=== PATIENT | female | born 1980 | race Caucasian/White ===

== ENCOUNTER → 2019-01-14 | Outpatient (CLI) | payer OTHER ==
[~2019-01-14] MED LIST: ALPR1 PO; AMOCLA875 PO; AMOX500 PO; BUSP15 PO; Bactroban22 GM TOP; CHLO25 PO; FLUO20 PO; HYDHCL25 PO; IBUP800 PO; OXYACE5T PO; PRED10 PO; PROP10 PO; Prednisone20 MG PO; SULTRIDS PO
== END | disposition home or self-care (01) ==
LOC: LAB EV 18:06 → LAB SHORT 18:06
DX: N89.8 Other specified noninflammatory disorders of vagina (principal)
CPT/HCPCS: 87070; 87205; 87529

== ENCOUNTER 2019-05-20 22:23 | Observation (INO) | payer OTHER ==
[~2019-05-20] VITALS: Ht 165.1 cm; Wt 62.1 kg
--- NOTE | 2019-05-21 02:30 | NUR ---
RECEIVED HADN OFF FROM ER NURSE USING SBAR. TRANSPORTED TO ROOM 213 VIA STRETCHER WITH FULL STAFF ASSISTANCE, TOLERATED WELL. ALERT, ORIENTED, AND DROWSY. ORIENTED TO ROOM, CALL SYSTEM, AND POC, VOICES UNDERSTANDING. RESPIRATIONS EVEN AND UNLABORED ON ROOM AIR. LUNG SOUNDS CLEAR BILATERALLY. ABDOMEN SOFT AND NONDISTENDED. BOWEL SOUNDS PRESENT IN ALL QUADS. CONTINENT OF BOWEL AND BLADDER. RIGHT UPPER ARM 18G SL. PIV IS PATENT, FLUSING WITH EASE. LEFT ARM IN JANETH WRAP AND ELEVATED ABOVE HEART LEVEL. LEFT FOOT 20G PIV IS PATENT, INFUSING NS AT 200ML/HR PER MD ORDERS. SCD'S PLACED TO BLE. RATED PAIN AT 8/10. WILL MEDICATE PER JAN. SPOUSE AT BEDSIDE PROVDED WITH PILLOW AND BLANKET FOR COMFORT. DENEIS FURTHER NEEDS AT THIS TIME. SAFETY MEASURES IN PLACE. WILL CONTINUE TO MONITOR.
[2019-05-21 04:42] LABS: BASOPHILS ABSOLUTE AUTO 0.11 K/mm3 (0.00-0.23); BASOPHILS PERCENT AUTO 1 % (0-2); EOSINOPHILS ABSOLUTE AUTO 0.15 K/mm3 (0.00-0.68); EOSINOPHILS PERCENT AUTO 1 % (0-6); Hematocrit 34.6 % (33.0-51.0); Hemoglobin 11.4 g/dL (11.5-16.0); IMMATURE GRAN ABSOLUTE AUTO 0.06 K/mm3 (0.00-0.10); IMMATURE GRAN PERCENT AUTO 0 % (0-1); LYMPHOCYTES ABSOLUTE AUTO 2.55 K/mm3 (0.84-5.20); LYMPHOCYTES PERCENT AUTO 17 % (21-46); MONOCYTES ABSOLUTE AUTO 1.27 K/mm3 (0.16-1.47); MONOCYTES PERCENT AUTO 9 % (4-13); Mean Corpuscular HGB 31.7 pg (26.0-34.0); Mean Corpuscular HGB Conc 32.9 g/dL (31.5-36.5); Mean Corpuscular Volume 96 fL (80-100); Mean Platelet Volume 9.6 fL (9.1-12.4); NEUTROPHILS PERCENT AUTO 72 % (41-73); Platelet Count 306 K/mm3 (150-400); RDW Coefficient Variation 11.9 % (11.7-14.2); RDW Standard Deviation 41.9 fL (35.1-46.3); White Blood Cell Count 14.64 K/mm3 (4.00-11.30)
--- NOTE | 2019-05-21 06:27 | NUR ---
SHIFT SUMMARY NO CHANGES SINCE ADMISSION, HAS BEEN NPO PER MD ORDERS. PAIN IS MANAGED WITH DILAUDID 1MG IVP. DENIES FURTHER NEEDS OR WANTS AT THIS TIME. SAFETY MEASURES IN PLACE. WILL GIVE HAND OFF TO ONCOMING SHIFT USING SBAR.
[2019-05-21 10:19] LABS: Anion Gap 6 mmol/L (6-16); Blood Urea Nitrogen 15 mg/dL (8-24); Bun/Creatinine Ratio 24.5 (12.0-20.0); CO2, Blood 26 mmol/L (21-32); Calcium, Blood 7.7 mg/dL (8.5-10.1); Chloride, Blood 109 mmol/L (98-108); Creatinine, Blood 0.61 mg/dL (0.40-1.00); Glomerular Filtration Rate >60 (60-); Glucose, Blood 92 mg/dL (70-99); Sodium, Blood 141 mmol/L (136-145)
--- NOTE | 2019-05-21 15:38 | NUR ---
1525 Ambulatory FROM BED IN [facility] TO [facility], CONFIRMS NPO/PROCEDURE, History, Chart, Medications and Allergies reviewed before start of procedure.Lungs clear T/O to Auscultation. Patient confirms NPO status and agrees with scheduled surgery. Pre-Op teaching done. Pt verbalizes understanding. SLEEPY AFFECT, MEDICATED IN LAST HOUR WITH DILAUDID, MEDICATED WITH PO PROPRANOLOL/XANAX SEVERAL HOURS AGO. L ARM IN ORTHO/JANETH SPLINT.
--- NOTE | 2019-05-21 18:46 | NUR ---
PT STILL IN OR
--- NOTE | 2019-05-21 20:31 | NUR ---
pt received back from pacu with complaint pain is worse than preop.blanching noted to fingers between first and second joints. pt keeping fingers curled and reports unable to straighten them. she is able to slowly wiggle them with concentration. swelling noted to all fingers.nurse that provided care last night checked noted fingers more swollen than she noted last night. pt complain of "spasms" had leo and toradol postop.L arm elevated with ice applied.pacu nurse reported local anesthetic noted to area.pts bp at 120/80 is said per pt to be high for her.i placed call out to dr edwards.waiting return call.
--- NOTE | 2019-05-21 20:47 | NUR ---
spoke with dr edwards. advised of assessment and pt complaint. he verb staff could remove wilma wrap ,loosen splinting at hand area and rewrap.
--- NOTE | 2019-05-22 01:53 | NUR ---
B MEGHAN HARRISON UNWRAPPED JANETH AND LOOSENED THEN REWRAPPED TONIGHT AFTER OK RECEIVED PER . ALSO FURTHER PAIN MEDS WERE GIVEN.PT VERBALIZING IMPROVEMENT NOTED WITH PAIN. SLEEPING OFF AND ON.
--- NOTE | 2019-05-22 03:11 | NUR ---
PT WOKE AND AMBULATED TO BATHROOM WITH SBA TOLERATED WELL.VOIDING WITHOUT DIFF. GAVE DILAUDID AFTER BACK TO BED.PT REPORTS ADEQUATE PAIN CONTROL. WIGGLES FINGERS. ABLE TO STRAIGHTEN FINGERS EASIER. ELEVATES LUE,BUT REFUSES ICE TO SURGICAL AREA AT THIS TIME. IV INFUSING L FOOT WITH CLEAR SITE.SL DURING AMBULATION.
[2019-05-22 04:25] LABS: BASOPHILS ABSOLUTE AUTO 0.04 K/mm3 (0.00-0.23); BASOPHILS PERCENT AUTO 0 % (0-2); EOSINOPHILS ABSOLUTE AUTO 0.01 K/mm3 (0.00-0.68); EOSINOPHILS PERCENT AUTO 0 % (0-6); Hematocrit 34.2 % (33.0-51.0); Hemoglobin 11.2 g/dL (11.5-16.0); IMMATURE GRAN ABSOLUTE AUTO 0.04 K/mm3 (0.00-0.10); IMMATURE GRAN PERCENT AUTO 0 % (0-1); LYMPHOCYTES ABSOLUTE AUTO 1.24 K/mm3 (0.84-5.20); LYMPHOCYTES PERCENT AUTO 11 % (21-46); MONOCYTES PERCENT AUTO 6 % (4-13); Mean Corpuscular HGB 31.4 pg (26.0-34.0); Mean Corpuscular HGB Conc 32.7 g/dL (31.5-36.5); Mean Corpuscular Volume 96 fL (80-100); Mean Platelet Volume 9.8 fL (9.1-12.4); NEUTROPHILS ABSOLUTE AUTO 9.81 K/mm3 (1.96-9.15); NEUTROPHILS PERCENT AUTO 83 % (41-73); Platelet Count 307 K/mm3 (150-400); RDW Coefficient Variation 11.7 % (11.7-14.2); RDW Standard Deviation 41.1 fL (35.1-46.3); Red Blood Cell Count 3.57 M/mm3 (3.80-5.20); White Blood Cell Count 11.84 K/mm3 (4.00-11.30)
[2019-05-22 04:48] LABS: Alanine Aminotransfer (ALT/SGP 17 U/L (12-78); Albumin, Blood 2.9 g/dL (3.4-5.0); Albumin/Globulin Ratio 0.9 (0.8-1.8); Alk Phos 78 U/L (50-136); Anion Gap 6 mmol/L (6-16); Aspartate Aminotrans (AST/SGOT 28 U/L (12-37); Bilirubin, Total 0.4 mg/dL (0.1-1.0); Blood Urea Nitrogen 8 mg/dL (8-24); Bun/Creatinine Ratio 15.1 (12.0-20.0); CO2, Blood 25 mmol/L (21-32); Calcium, Blood 7.8 mg/dL (8.5-10.1); Chloride, Blood 106 mmol/L (98-108); Creatinine, Blood 0.53 mg/dL (0.40-1.00); Globulin, Blood 3.3 g/dL (2.2-4.0); Glomerular Filtration Rate >60 (60-); Glucose, Blood 127 mg/dL (70-99); Potassium, Blood 4.1 mmol/L (3.5-5.5); Sodium, Blood 137 mmol/L (136-145); Total Protein, Blood 6.2 g/dL (6.4-8.2)
[2019-05-22] MEDS ORDERED: OXYC5 PO (10:20)
--- NOTE | 2019-05-22 10:38 | NUR ---
PATIENT D/C'D HOME WITH MOTHER AT THIS TIME. PATIENT STATES PAIN TOLERABLE WITH PO PAIN MEDS. TOLERATING PO. VOIDING. PATIENT STATES UNDERSTANDING OF MEDS, WOUND CARE, NWB LUE, F/U APPOINTMENT, ETC. NO C/O AT THIS TIME.
--- NOTE | 2019-05-22 12:30 | NUR ---
05/22/19 1230 Argelia Bowman VERIFICATIONS: EDIT CHART.
== END 2019-05-22 10:50 | disposition home or self-care (01) ==
LOC: ER 22:23 → SURS 22:24
PROVIDERS: Internal Medicine; Orthopaedic Surgery; ADMIT Hospitalist
PROC: 0PSL04Z Reposition Left Ulna with Internal Fixation Device, Open Approach (ICD-10-PCS; 2019-05-21)
PROC: 0PSJ04Z Reposition Left Radius with Internal Fixation Device, Open Approach (ICD-10-PCS; principal; 2019-05-21 15:30)
DX: S52.352A Displaced comminuted fracture of shaft of radius, left arm, initial encounter for closed fracture (principal); S52.252A Displaced comminuted fracture of shaft of ulna, left arm, initial encounter for closed fracture; F41.0 Panic disorder [episodic paroxysmal anxiety]; F15.11 Other stimulant abuse, in remission; F11.10 Opioid abuse, uncomplicated; F17.210 Nicotine dependence, cigarettes, uncomplicated; Z91.040 Latex allergy status; Z79.899 Other long term (current) drug therapy; W01.0XXA Fall on same level from slipping, tripping and stumbling without subsequent striking against object, initial encounter
CPT/HCPCS: 25605; 36415; 73090; 80048; 80053; 81025; 85025; 93005; 93010; 94770; 96366; 96374-59; 96375; 96375-59; 96376; 99152; 99284-25; A9270; C1713; G0378; J0690; J1100; J1170; J1885; J2250; J2270; J2405; J2704; J3010; J7030; J7120

== ENCOUNTER 2019-08-06 13:45 | Emergency (ER) | payer OTHER ==
[~2019-08-06] VITALS: Ht 162.6 cm; Wt 59.0 kg
[~2019-08-06 13:45] MED LIST changes: +OXYC5 PO
[2019-08-06] MEDS ORDERED: Xanax1 MG PO (14:24)
== END 2019-08-06 14:32 | disposition home or self-care (01) ==
LOC: ER 13:45
DX: F41.9 Anxiety disorder, unspecified (principal); Z76.0 Encounter for issue of repeat prescription; Z91.040 Latex allergy status; Z79.899 Other long term (current) drug therapy; F17.200 Nicotine dependence, unspecified, uncomplicated
CPT/HCPCS: 99281

== ENCOUNTER 2019-09-09 21:43 | Emergency (ER) | payer OTHER ==
[~2019-09-09] VITALS: Ht 165.1 cm; Wt 61.2 kg
[~2019-09-09 21:43] MED LIST changes: +Xanax1 MG PO
[2019-09-10] MEDS ORDERED: Prozac40 MG (00:32)
[2019-09-10 01:01] LABS: BASOPHILS ABSOLUTE AUTO 0.13 K/mm3 (0.00-0.23); BASOPHILS PERCENT AUTO 1 % (0-2); EOSINOPHILS ABSOLUTE AUTO 0.46 K/mm3 (0.00-0.68); EOSINOPHILS PERCENT AUTO 2 % (0-6); Hemoglobin 12.9 g/dL (11.5-16.0); IMMATURE GRAN ABSOLUTE AUTO 0.09 K/mm3 (0.00-0.10); IMMATURE GRAN PERCENT AUTO 0 % (0-1); LYMPHOCYTES ABSOLUTE AUTO 3.28 K/mm3 (0.84-5.20); LYMPHOCYTES PERCENT AUTO 14 % (21-46); MONOCYTES ABSOLUTE AUTO 2.14 K/mm3 (0.16-1.47); MONOCYTES PERCENT AUTO 9 % (4-13); Mean Corpuscular HGB 31.2 pg (26.0-34.0); Mean Corpuscular HGB Conc 33.1 g/dL (31.5-36.5); Mean Corpuscular Volume 94 fL (80-100); Mean Platelet Volume 9.4 fL (9.1-12.4); NEUTROPHILS ABSOLUTE AUTO 17.19 K/mm3 (1.96-9.15); NEUTROPHILS PERCENT AUTO 74 % (41-73); Platelet Count 416 K/mm3 (150-400); RDW Coefficient Variation 11.8 % (11.7-14.2); RDW Standard Deviation 40.9 fL (35.1-46.3); Red Blood Cell Count 4.13 M/mm3 (3.80-5.20); White Blood Cell Count 23.29 K/mm3 (4.00-11.30)
[2019-09-10 01:18] LABS: Alanine Aminotransfer (ALT/SGP 16 U/L (12-78); Albumin, Blood 3.5 g/dL (3.4-5.0); Albumin/Globulin Ratio 0.8 (0.8-1.8); Alk Phos 107 U/L (50-136); Anion Gap 6 mmol/L (6-16); Aspartate Aminotrans (AST/SGOT 13 U/L (12-37); Bilirubin, Total 0.3 mg/dL (0.1-1.0); Blood Urea Nitrogen 13 mg/dL (8-24); CO2, Blood 28 mmol/L (21-32); Calcium, Blood 8.7 mg/dL (8.5-10.1); Chloride, Blood 101 mmol/L (98-108); Creatinine, Blood 0.59 mg/dL (0.40-1.00); Globulin, Blood 4.2 g/dL (2.2-4.0); Glomerular Filtration Rate >60 (60-); Glucose, Blood 108 mg/dL (70-99); Potassium, Blood 3.8 mmol/L (3.5-5.5); Sodium, Blood 135 mmol/L (136-145); Total Protein, Blood 7.7 g/dL (6.4-8.2)
[2019-09-10] MEDS ORDERED: Cleocin HCl300 MG PO (02:37)
== END 2019-09-10 03:31 | disposition home or self-care (01) ==
LOC: ER 21:43
PROVIDERS: Physician Assistant
DX: L03.116 Cellulitis of left lower limb (principal); Z91.040 Latex allergy status; Z79.899 Other long term (current) drug therapy; F41.9 Anxiety disorder, unspecified; F17.200 Nicotine dependence, unspecified, uncomplicated
CPT/HCPCS: 36415; 73701; 80053; 83605; 85025; 96365; 96375; 99284; J1885; J2270; Q9967

== ENCOUNTER 2019-12-03 23:48 | Emergency (ER) | payer OTHER ==
[~2019-12-03] VITALS: Ht 165.1 cm; Wt 59.0 kg
[~2019-12-03 23:48] MED LIST changes: +Cleocin HCl300 MG PO; +Prozac40 MG
[2019-12-04] MEDS ORDERED: LEVO750 PO (02:11)
== END 2019-12-04 02:34 | disposition home or self-care (01) ==
LOC: ER 23:48
DX: J18.9 Pneumonia, unspecified organism (principal); F41.9 Anxiety disorder, unspecified; Z91.040 Latex allergy status; Z87.891 Personal history of nicotine dependence; Z79.899 Other long term (current) drug therapy
CPT/HCPCS: 71046; 99283-25; J1100

== ENCOUNTER 2019-12-09 23:22 | Emergency (ER) | payer OTHER ==
[~2019-12-09] VITALS: Ht 165.1 cm; Wt 61.2 kg
[~2019-12-09 23:22] MED LIST changes: +LEVO750 PO
[2019-12-10] MEDS ORDERED: XANAX PO (00:06)
[2019-12-10] MEDS ORDERED: ALPR1 PO (00:06)
[2019-12-10] MEDS ORDERED: PROP10 PO (00:06)
[2019-12-10 00:15] LABS: BASOPHILS ABSOLUTE AUTO 0.17 K/mm3 (0.00-0.23); BASOPHILS PERCENT AUTO 1 % (0-2); EOSINOPHILS ABSOLUTE AUTO 0.57 K/mm3 (0.00-0.68); EOSINOPHILS PERCENT AUTO 3 % (0-6); Hematocrit 30.6 % (33.0-51.0); Hemoglobin 10.1 g/dL (11.5-16.0); Mean Corpuscular HGB 30.1 pg (26.0-34.0); Mean Corpuscular Volume 91 fL (80-100); Mean Platelet Volume 8.8 fL (9.1-12.4); Platelet Count 653 K/mm3 (150-400); RDW Coefficient Variation 11.8 % (11.7-14.2); RDW Standard Deviation 39.3 fL (35.1-46.3); Red Blood Cell Count 3.35 M/mm3 (3.80-5.20); White Blood Cell Count 22.02 K/mm3 (4.00-11.30)
[2019-12-10 00:16] LABS: IMMATURE GRAN ABSOLUTE AUTO 0.27 K/mm3 (0.00-0.10); IMMATURE GRAN PERCENT AUTO 1 % (0-1); LYMPHOCYTES ABSOLUTE AUTO 4.06 K/mm3 (0.84-5.20); LYMPHOCYTES PERCENT AUTO 18 % (21-46); MONOCYTES ABSOLUTE AUTO 1.97 K/mm3 (0.16-1.47); MONOCYTES PERCENT AUTO 9 % (4-13); NEUTROPHILS ABSOLUTE AUTO 14.98 K/mm3 (1.96-9.15); NEUTROPHILS PERCENT AUTO 68 % (41-73)
[2019-12-10 00:35] LABS: Anion Gap 7 mmol/L (6-16); Blood Urea Nitrogen 9 mg/dL (8-24); Bun/Creatinine Ratio 14.2 (12.0-20.0); CO2, Blood 28 mmol/L (21-32); Calcium, Blood 8.8 mg/dL (8.5-10.1); Chloride, Blood 102 mmol/L (98-108); Creatinine, Blood 0.63 mg/dL (0.40-1.00); Glomerular Filtration Rate >60 (60-); Glucose, Blood 99 mg/dL (70-99); Potassium, Blood 3.6 mmol/L (3.5-5.5); Sodium, Blood 137 mmol/L (136-145); Troponin I <0.015 ng/mL (0.000-0.040)
[2019-12-10] MEDS ORDERED: Augmentin 875-1 EACH PO (00:48)
[2019-12-10] MEDS ORDERED: Zithromax250 MG PO (00:48)
== END 2019-12-10 02:55 | disposition home or self-care (01) ==
LOC: ER 23:22
PROVIDERS: Physician Assistant
DX: A41.9 Sepsis, unspecified organism (principal); J18.9 Pneumonia, unspecified organism; F41.9 Anxiety disorder, unspecified; Z91.040 Latex allergy status; Z79.899 Other long term (current) drug therapy
CPT/HCPCS: 36415; 71046; 80048; 83605; 84484; 85025; 93005; 93010; 96361; 96365; 99285-25; J0696; J7030

== ENCOUNTER 2020-04-22 16:33 | Emergency (ER) | payer OTHER ==
[~2020-04-22] VITALS: Ht 165.1 cm; Wt 61.2 kg
[~2020-04-22 16:33] MED LIST changes: +Augmentin 875-1 EACH PO; +XANAX PO; +Zithromax250 MG PO
[2020-04-22] MEDS ORDERED: CEPH500 PO (17:13)
[2020-04-22] MEDS ORDERED: Bactrim Ds Tab1 EACH PO (17:13)
== END 2020-04-22 17:17 | disposition home or self-care (01) ==
LOC: ER 16:33
DX: L02.511 Cutaneous abscess of right hand (principal); Z91.040 Latex allergy status; F41.9 Anxiety disorder, unspecified; F17.200 Nicotine dependence, unspecified, uncomplicated; Z79.899 Other long term (current) drug therapy
CPT/HCPCS: 99282

== ENCOUNTER 2021-02-06 15:07 | Emergency (ER) | payer OTHER ==
[~2021-02-06] VITALS: Ht 165.1 cm; Wt 65.8 kg
[~2021-02-06 15:07] MED LIST changes: +Bactrim Ds Tab1 EACH PO; +CEPH500 PO
[2021-02-06] MEDS ORDERED: ALLERCLEAR10 MG PO (15:39)
[2021-02-06] MEDS ORDERED: Prednisone50 MG PO (15:39)
== END 2021-02-06 15:54 | disposition home or self-care (01) ==
LOC: ER 15:07
DX: L23.7 Allergic contact dermatitis due to plants, except food (principal); F17.200 Nicotine dependence, unspecified, uncomplicated; Z91.040 Latex allergy status; Z79.899 Other long term (current) drug therapy
CPT/HCPCS: 96372; 99283-25; J1100

== ENCOUNTER 2021-03-24 13:13 | Emergency (ER) | payer OTHER ==
[~2021-03-24] VITALS: Ht 165.1 cm; Wt 61.7 kg
[~2021-03-24 13:13] MED LIST changes: +ALLERCLEAR10 MG PO; +Prednisone50 MG PO
[2021-03-24] MEDS ORDERED: Norco 5-325 Ta1 EACH PO (16:40)
[2021-03-24] MEDS ORDERED: ONDA4 PO (16:40)
== END 2021-03-24 16:45 | disposition home or self-care (01) ==
LOC: ER 13:13
DX: S62.511A Displaced fracture of proximal phalanx of right thumb, initial encounter for closed fracture (principal); F17.200 Nicotine dependence, unspecified, uncomplicated; Z91.040 Latex allergy status; Z79.899 Other long term (current) drug therapy; W01.0XXA Fall on same level from slipping, tripping and stumbling without subsequent striking against object, initial encounter
CPT/HCPCS: 29125; 73130; 96372; 99283-25; J1885

== ENCOUNTER 2021-07-03 13:55 | Emergency (ER) | payer OTHER ==
[~2021-07-03 13:55] MED LIST changes: +Norco 5-325 Ta1 EACH PO; +ONDA4 PO
[2021-07-03] MEDS ORDERED: BENZ100A PO (14:13)
== END 2021-07-03 14:20 | disposition home or self-care (01) ==
LOC: ER 13:55
DX: U07.1 COVID-19 (principal); F17.200 Nicotine dependence, unspecified, uncomplicated
CPT/HCPCS: 99282

== ENCOUNTER 2022-08-10 10:10 | Emergency (ER) | payer OTHER ==
[~2022-08-10] VITALS: Ht 165.1 cm; Wt 63.5 kg
[~2022-08-10 10:10] MED LIST changes: +BENZ100A PO
[2022-08-10] MEDS ORDERED: Bactrim Ds Tab1 EACH PO (10:34)
== END 2022-08-10 10:59 | disposition home or self-care (01) ==
LOC: ER 10:10
DX: L73.9 Follicular disorder, unspecified (principal); F17.200 Nicotine dependence, unspecified, uncomplicated; Z91.040 Latex allergy status; Z79.899 Other long term (current) drug therapy
CPT/HCPCS: 99282

== ENCOUNTER 2022-08-21 20:42 | Emergency (ER) | payer OTHER ==
[~2022-08-21] VITALS: Ht 165.1 cm; Wt 65.8 kg
[2022-08-21] MEDS ORDERED: CEPH500 PO (20:55)
[2022-08-21] MEDS ORDERED: Bactrim Ds Tab1 EACH PO (20:55)
== END 2022-08-21 20:56 | disposition home or self-care (01) ==
LOC: ER 20:42
DX: L02.412 Cutaneous abscess of left axilla (principal); F17.200 Nicotine dependence, unspecified, uncomplicated
CPT/HCPCS: 99282

== ENCOUNTER 2023-02-25 12:34 | Emergency (ER) | payer OTHER ==
[~2023-02-25] VITALS: Ht 167.6 cm; Wt 65.8 kg
[2023-02-25 13:06] VITALS: BP 113/83
[2023-02-25] MEDS ORDERED: PSEUDOEPHEDRINE30 M1 PO (15:01)
[2023-02-25] MEDS ORDERED: AMOCLA875 PO (15:01)
== END 2023-02-25 15:10 | disposition home or self-care (01) ==
LOC: ER 12:34
DX: J01.90 Acute sinusitis, unspecified (principal); B96.89 Other specified bacterial agents as the cause of diseases classified elsewhere; Z91.040 Latex allergy status; Z79.899 Other long term (current) drug therapy; F17.200 Nicotine dependence, unspecified, uncomplicated
CPT/HCPCS: 99282

== ENCOUNTER 2024-04-18 07:37 | Emergency (ER) | payer OTHER ==
[~2024-04-18] VITALS: Ht 165.1 cm; Wt 63.5 kg
[~2024-04-18 07:37] MED LIST changes: +PSEUDOEPHEDRINE30 M1 PO
[2024-04-18 07:48] VITALS: BP 118/82
[2024-04-18] MEDS ORDERED: CLON1 PO (07:52)
[2024-04-18] MEDS ORDERED: Dexamethasone Sod Phos 10 MG/ML 1ML VIAL IM ONE (08:25)
== END 2024-04-18 08:34 | disposition home or self-care (01) ==
LOC: ER 07:37
DX: L23.7 Allergic contact dermatitis due to plants, except food (principal); F41.9 Anxiety disorder, unspecified; F17.210 Nicotine dependence, cigarettes, uncomplicated; F15.11 Other stimulant abuse, in remission; F11.11 Opioid abuse, in remission; Z79.899 Other long term (current) drug therapy
CPT/HCPCS: 96372; 99283-25; J1100

== ENCOUNTER 2024-11-15 18:59 | Emergency (ER) | payer OTHER ==
[~2024-11-15] VITALS: Ht 165.1 cm; Wt 65.8 kg
[~2024-11-15 18:59] MED LIST changes: +CLON1 PO
[2024-11-15 19:14] VITALS: BP 133/81
== END 2024-11-15 19:50 | disposition home or self-care (01) ==
LOC: ER 18:59
DX: J06.9 Acute upper respiratory infection, unspecified (principal); F17.200 Nicotine dependence, unspecified, uncomplicated; Z91.040 Latex allergy status; Z79.899 Other long term (current) drug therapy
CPT/HCPCS: 71046; 99283-25